=== PATIENT | male | born 1950 | race Caucasian/White ===

== ENCOUNTER 2017-04-09 09:28 | Inpatient (IN) | payer MEDICARE ==
[~2017-04-09] VITALS: Ht 180.3 cm; Wt 113.6 kg
[2017-05-19] VITALS (10 sets, daily range): BP systolic 84–148; BP diastolic 48–64; PULSE 54–92; TEMP 97.5–98.5
[2017-05-19] MEDS ORDERED: ZOCOR 20MG20 MG PO (06:40)
[2017-05-19] MEDS ORDERED: LOPRESSOR 550 MG/TAB PO (06:40)
[2017-05-19] MEDS ORDERED: HCTZ 25MG TAB25 MG PO (06:40)
[2017-05-19] MEDS ORDERED: TENORMIN 5050 MG/TAB PO (06:41)
[2017-05-19] MEDS ORDERED: MOBIC15 MG PO ×2 (06:41→14:13)
[2017-05-19] MEDS ORDERED: K-DUR20 MEQ PO (06:41)
[2017-05-19] MEDS ORDERED: COZAAR100 MG PO (06:41)
[2017-05-19] MEDS ORDERED: TIAZAC240 MG PO (06:42)
[2017-05-19] MEDS ORDERED: AMITRIPTYLINE H25 M1 PO (14:08)
[2017-05-19] MEDS ORDERED: ASPIRIN 32325 MG/TA1 PO (14:09)
[2017-05-19] MEDS ORDERED: ADVIL200 MG PO (14:10)
[2017-05-19] MEDS ORDERED: MIRALAX PA17 GM/Dose PO (14:14)
[2017-05-19] MEDS ORDERED: NITROSTAT0.3 MG SL (14:15)
[2017-05-20 01:51] VITALS: BP 103/53; PULSE 87; TEMP 99.2
[2017-05-20 04:00] VITALS: BP 119/57; PULSE 70; TEMP 98.6
[2017-05-20] MEDS ORDERED: CELEBREX 200MG200 MG PO (06:36)
[2017-05-20] MEDS ORDERED: ULTRAM 50MG TAB50 MG PO (06:37)
[2017-05-20] MEDS ORDERED: NORCO 325 MG-7.1 TAB PO (06:37)
[2017-05-20 07:19] LABS: HEMOGLOBIN 7.1 g/dl (13.5-18.0)
[2017-05-20 07:48] VITALS: BP 162/73; PULSE 104; TEMP 98.5
[2017-05-20 11:50] VITALS: BP 149/61; PULSE 69; TEMP 98
[2017-05-20 16:56] VITALS: BP 132/59; PULSE 98; TEMP 97.7
[2017-05-20 20:39] VITALS: BP 121/63; PULSE 73; TEMP 97.9
[2017-05-21 00:07] VITALS: BP 113/50; PULSE 72; TEMP 98.3
[2017-05-21 03:52] VITALS: BP 112/59; PULSE 81; TEMP 98.1
[2017-05-21 06:48] LABS: HEMATOCRIT 23.6 % (42.0-52.0); HEMOGLOBIN 7.3 g/dl (13.5-18.0)
[2017-05-21 07:19] VITALS: BP 135/63; PULSE 66; TEMP 98.1
[2017-05-21 11:20] VITALS: BP 141/57; PULSE 68; TEMP 98.4
[2017-05-21 15:35] VITALS: BP 143/53; PULSE 60; TEMP 97.8
[2017-05-21 20:05] VITALS: BP 127/59; PULSE 74; TEMP 98
[2017-05-22 00:41] VITALS: BP 128/57; PULSE 73; TEMP 98.1
[2017-05-22 03:49] VITALS: BP 126/67; PULSE 70; TEMP 98.1
[2017-05-22 07:48] VITALS: BP 145/62; PULSE 86; TEMP 98
[2017-05-22 09:14] VITALS: BP 145/62; PULSE 86; TEMP 98
== END 2017-05-22 10:50 | disposition swing bed (61) | DRG 470 ==
LOC: JCC 05-19 05:10
PROVIDERS: Orthopaedic Surgery; Physician Assistant
PROC: 0SRD0J9 Replacement of Left Knee Joint with Synthetic Substitute, Cemented, Open Approach (ICD-10-PCS; principal; 2017-05-19 07:30)
DX: M17.12 Unilateral primary osteoarthritis, left knee (principal); E78.5 Hyperlipidemia, unspecified; D50.9 Iron deficiency anemia, unspecified
CPT/HCPCS: A4315; A9284; C1713; C1776; J0690; J1100; J1885; J2250; J2405; J2704; J7120

== ENCOUNTER 2017-07-17 09:14 | Inpatient (IN) | payer MEDICARE ==
[~2017-07-17] VITALS: Ht 180.3 cm; Wt 111.5 kg
[~2017-07-17 09:14] MED LIST: ADVIL200 MG PO; AMITRIPTYLINE H25 M1 PO; ASPIRIN 32325 MG/TA1 PO; CELEBREX 200MG200 MG PO; COZAAR100 MG PO; HCTZ 25MG TAB25 MG PO; K-DUR20 MEQ PO; LOPRESSOR 550 MG/TAB PO; MIRALAX PA17 GM/Dose PO; MOBIC15 MG PO; NITROSTAT0.3 MG SL; NORCO 325 MG-7.1 TAB PO; TENORMIN 5050 MG/TAB PO; TIAZAC240 MG PO; ULTRAM 50MG TAB50 MG PO; ZOCOR 20MG20 MG PO
[2017-09-09] MEDS ORDERED: ZOCOR 20MG20 MG PO (09:25)
[2017-09-09] MEDS ORDERED: MOBIC15 MG PO (09:26)
[2017-09-09] MEDS ORDERED: ASPI325T6 PO (09:27)
[2017-09-09] MEDS ORDERED: HCTZ 25MG TAB25 MG PO (09:27)
[2017-09-09] MEDS ORDERED: COZAAR100 MG PO (09:28)
[2017-09-09] MEDS ORDERED: K-DUR20 MEQ PO (09:28)
[2017-09-09] MEDS ORDERED: FERROUS SU325 MG/TAB PO (09:30)
[2017-09-09] MEDS ORDERED: MIRALAX PA17 GM/Dose PO (09:32)
[2017-09-10] VITALS (9 sets, daily range): BP systolic 106–146; BP diastolic 50–79; PULSE 46–69; TEMP 98.4–98.7
[2017-09-10] MEDS ORDERED: MOTRIN 200200 MG/TAB PO (11:16)
[2017-09-10] MEDS ORDERED: ASPIRIN 32325 MG/TA1 PO (11:17)
[2017-09-11 00:36] VITALS: BP 129/61; PULSE 61; TEMP 98.4
[2017-09-11 04:04] VITALS: BP 136/80; PULSE 68; TEMP 98.6; TEMP 99.6
[2017-09-11] MEDS ORDERED: ASPIRIN 32325 MG/TA1 PO (06:50)
[2017-09-11] MEDS ORDERED: CELEBREX 200MG200 MG PO (06:50)
[2017-09-11] MEDS ORDERED: ULTRAM 50MG TAB50 MG PO (06:51)
[2017-09-11] MEDS ORDERED: NORCO 325 MG-7.1 TAB PO (06:51)
[2017-09-11 08:17] VITALS: BP 128/55; PULSE 103; TEMP 98.1
[2017-09-11 08:25] LABS: HEMATOCRIT 33.3 % (42.0-52.0); HEMOGLOBIN 10.9 g/dl (13.5-18.0)
[2017-09-11 11:31] VITALS: BP 123/67; PULSE 92; TEMP 100.7
[2017-09-11 11:34] VITALS: TEMP 99.3
== END 2017-09-11 18:23 | disposition home or self-care (01) | DRG 470 ==
LOC: JCC 09-10 07:30 → SURG 09-10 10:11 → JCC 09-10 12:45 → SURG 09-11 18:23
PROVIDERS: Orthopaedic Surgery
PROC: 0SRC0J9 Replacement of Right Knee Joint with Synthetic Substitute, Cemented, Open Approach (ICD-10-PCS; principal; 2017-09-10 12:45)
DX: M17.11 Unilateral primary osteoarthritis, right knee (principal)
CPT/HCPCS: A4314; A9284; C1713; C1776; J0690; J1885; J2250; J2704; J3010; J7120; J7121

== ENCOUNTER 2022-11-08 07:29 | Day surgery (SDC) | payer MEDICARE ==
[~2022-11-08] VITALS: Ht 180.3 cm; Wt 116.4 kg
[~2022-11-08 07:29] MED LIST changes: +ASPI325T6 PO; +DULCOLAX STOOL100 MG PO; +FERROUS SU325 MG/TAB PO; +K-DUR 10 MEQ T10 MEQ PO; +MOTRIN 200200 MG/TAB PO
[2022-11-08 10:22] VITALS: BP 142/75; PULSE 58; TEMP 98.2
[2022-11-08] MEDS ORDERED: NORCO 325 MG-51 TAB PO (15:13)
[2022-11-08 15:30] VITALS: BP 131/60; PULSE 62; TEMP 97.4
[2022-11-08 15:45] VITALS: BP 133/53; PULSE 62
[2022-11-08 16:00] VITALS: BP 138/75; PULSE 60
--- NOTE | 2022-11-08 17:22 | NUR ---
1530 PT TO [facility] FROM PACU S/P R AXILLARY SENTINAL NODE BIOPSY AND EXCISIION OF MELAN[place] R SHOULDER PLACED ON MONITOR, VSS ON RA RECEIVED REPORT AND ASSUMED CARE OF PT FROM NELL MENDIOLA FRIEND/RIDE HOME BROUGHT TO BEDSIDE PROVIDED FOOD AND DRINK PER REQUEST - TOLERATING WELL. DENIES PAIN/COMPLAINT. 1600 PT HAS REMAINED A&O, NAD, VSS ON RA, TOLERATING PO, IS WITHOUT SIGNIFICANT COMPLAINT, WITH STEADY GAIT THRU OUT [facility] IV D/C'D. D/C INSTRUCTIONS, ANY FOLLOW UP REVIEWED AND HANDED TO PT/FRIEND. ALL QUESTIONS AND CONCERNS ADDRESSED TO PT SATISFACTION. 1605 TAKEN TO EXIT VIA W/C WITH ALL BELONGINGS AND PAPERWORK IN HAND, ASSISTED INTO PASSENGER SEAT OF PO. FRIEND TO DRIVE HOME.
== END 2022-11-08 16:05 | disposition home or self-care (01) ==
LOC: SDCO 07:29
DX: C43.61 Malignant melanoma of right upper limb, including shoulder (principal); C79.9 Secondary malignant neoplasm of unspecified site; L90.5 Scar conditions and fibrosis of skin; E66.9 Obesity, unspecified; I10 Essential (primary) hypertension; Z68.41 Body mass index [BMI] 40.0-44.9, adult; Z87.891 Personal history of nicotine dependence
CPT/HCPCS: A9520; J0690; J1100; J2405; J2704; J3010; J7120

== ENCOUNTER 2022-12-05 10:02 | Day surgery (SDC) | payer MEDICARE ==
[~2022-12-05] VITALS: Ht 172.7 cm; Wt 115.0 kg
[2022-12-05] VITALS (7 sets, daily range): BP systolic 110–155; BP diastolic 45–90; PULSE 50–58; TEMP 97.1–98.1
[~2022-12-05 10:02] MED LIST changes: +NORCO 325 MG-51 TAB PO
[2022-12-05] MEDS ORDERED: COZAAR 50MG50 MG/TAB PO (11:30)
[2022-12-05] MEDS ORDERED: NORCO 325 MG-51 TAB PO (14:50)
--- NOTE | 2022-12-05 16:05 | NUR ---
1438 RETURNS TO ROOM 2 PAR CART. AWAKE, ALERT. RESP UNLABORED. HOB ELEVATED 40 DEGREES. VITAL SIGNS OBTAINED. NO COUGH NOTED. INCISION RIGHT INTACT. NO REDNESS OR DRAINAGE OBSERVED. RALEIGH DRAIN PATENT. SMALL AMOUNT OR RED DRAINAGE OBSERVED. CALL LIGHT AT SIDE. FRIEND/CALL OR CONTACT CENTRE TEAM LEADER, JHOANA IN ROOM 1450 HOB ELEVATED 75 DEGREES. TOLERATES WATER WITHOUT NAUSEA. 1505 TOLERATES PO MUFFIN WITHOUT NAUSEA. 1530 DISCHARGE INSTRUCTIONS REVIEWED WITH PATIENT AND JHOANA. RALEIGH DRAIN INSTRUCTIONS THOROUGHLY REVIEWED; DEMONSTRATION GIVEN ON EMPTYING. PATIENT AND JHOANA VERBALIZE UNDERSTANDING. INSTRUCTIONS PROVIDED IN DISCHARGE FOLDER. GRADUATED CUPS SENT HOME WITH PATIENT 1550 SITS ON EDGE OF BED. DRESSES SELF. R[place] DRAIN SECURED TO SHIRT
== END 2022-12-05 16:05 | disposition home or self-care (01) ==
LOC: SDCO 10:02
DX: C43.61 Malignant melanoma of right upper limb, including shoulder (principal); Z87.891 Personal history of nicotine dependence
CPT/HCPCS: J0690; J2250; J2405; J2704; J2795; J3010; J7120